=== PATIENT | female | born 2000 | race Caucasian/White ===

== ENCOUNTER 2023-06-26 23:37 | Emergency (ER) | payer BC, MEDICAID ==
[2023-06-27] MEDS ORDERED: Ketorolac Tromethamine 30 MG/ML VIAL ONE (02:01)
== END 2023-06-27 02:10 | disposition home or self-care (01) ==
LOC: CSHERS 23:37
DX: N94.6 Dysmenorrhea, unspecified (principal); R10.32 Left lower quadrant pain; F17.210 Nicotine dependence, cigarettes, uncomplicated
CPT/HCPCS: 76856; 96374; J1885